=== PATIENT | male | born 1990 | race Caucasian/White ===

== ENCOUNTER 2016-11-28 15:37 | Emergency (ER) | payer BC, OTHER ==
[2016-11-28 15:46] VITALS: BP 140/93
--- NOTE | 2016-11-28 16:06 | EDM.PDOC ---
ED HPI LOWER BACK PAIN/INJURY - General Chief Complaint: Back Pain or Injury Stated Complaint: LOW BACK PAIN Time Seen by Provider: 11/28/16 15:45 Source of Information: Reports: Patient History Limitations: Reports: No limitations - History of Present Illness INITIAL COMMENTS - FREE TEXT/NARRATIVE: The patient presents with low back pain. He has a history of back injury and back problems. He had an MRI recently that showed a problem at L4 and L5. This weekend he was roller blading and he jumped on a rail and missed and landed on his back. He has no numbness or weakness. He has no bowel or bladder problems. Timing/Duration: Reports: Day(s): (3) Location: Reports: lower Quality: Reports: Sharp Severity: moderate Place of Occurrence: other (Trying to catch a rale) Improves with: Reports: None Worsens with: Reports: None Context: Reports: fall Associated Symptoms: Reports: Denies symptoms - Related Data Allergies/ADRs: Allergies Allergy/AdvReac Type Severity Reaction Status Date / Time No Known Allergies Allergy Verified 11/28/16 15:43 Home Meds: Home Meds Cyclobenzaprine [Flexeril] 10 mg PO TID PRN #20 tablet 11/28/16 [Rx] oxyCODONE HCl/Acetaminophen [Percocet 5-325 mg Tablet] 1 - 2 each PO Q6HR PRN # 20 tablet 11/28/16 [Rx] Past Medical History - Past Health History Medical/Surgical History: Denies Medical/Surgical History Social & Family History - Tobacco Use Smoking Status *Q: Current Every Day Smoker Years of Tobacco use: 5 Packs/Tins Daily: 0.3 - Recreational Drug Use Recreational Drug Use: No ED ROS GENERAL - Review of Systems Review Of Systems: See Below Constitutional: Reports: no symptoms HEENT: Reports: No symptoms Respiratory: Reports: No Symptoms Cardiovascular: Reports: No symptoms Endocrine: Reports: no symptoms GI/Abdominal: Reports: No symptoms : Reports: no symptoms Musculoskeletal: Reports: back pain (Low) Skin: Reports: no symptoms Neurological: Reports: No Symptoms ED EXAM,LOWER BACK PAIN/INJURY - Physical Exam Exam: See Below Exam Limited By: No limitations General Appearance: alert, no apparent distress Ears: normal external exam Nose: normal inspection Head: atraumatic, normocephalic Neck: normal inspection Respiratory/Chest: no respiratory distress, lungs clear, normal breath sounds Cardiovascular: regular rate, rhythm, no edema, no murmur GI/Abdominal: soft, non tender, no organomegaly Back Exam: vertebral tenderness (Moderate) Neurological: alert, no motor/sensory deficits, oriented x 3 Course - Vital Signs Last Recorded V/S: Last Vital Signs Temp 98.8 F 11/28/16 15:43 Pulse 70 11/28/16 15:43 Resp 15 11/28/16 15:43 BP 140/93 H 11/28/16 15:43 Pulse Ox 98 11/28/16 15:43 - Orders/Labs/Meds Orders: Active Orders 24 hr Category Date Time Status Lumbar Spine 2 or 3V [CR] Stat Exams 11/28/16 15:53 Taken - Re-Assessments/Exams Free Text/Narrative Re-Assessment/Exam: 11/28/16 16:16 His x-ray looks good. He asked me about some pain he has been having in the left lower chest. He has no shortness of breath with it. He has no fever, cough or congestion. I will get a prescription for flexeril and some percocet. Departure - Departure Time of Disposition: 16:30 Disposition: Home, Self-Care 01 Condition: good Clinical Impression: Pleurisy Fall Qualifiers: Encounter type: initial encounter Qualified Code(s): W19.XXXA - Unspecified fall, initial encounter Low back pain Qualifiers: Chronicity: acute Back pain laterality: bilateral Sciatica presence: without sciatica Qualified Code(s): M54.5 - Low back pain Prescriptions: oxyCODONE HCl/Acetaminophen [Percocet 5-325 mg Tablet] 1 - 2 each PO Q6HR PRN # 20 tablet PRN Reason: Pain Cyclobenzaprine [Flexeril] 10 mg PO TID PRN #20 tablet PRN Reason: Pain Referrals: Jose Manuel Pimentel PA-C [Physician Recruiting Consultant] - 1 Week Forms: ED Department Discharge Additional Instructions: Take your medication as prescribed. Ice your back for 15 minutes every other hour while awake for 2 days. Please return if you are worse such as increased pain, numbness, weakness, bowel or bladder problems. - My Orders Last 24 Hours: My Active Orders 11/28/16 15:53 Lumbar Spine 2 or 3V [CR] Stat - Assessment/Plan Last 24 Hours: My Active Orders 11/28/16 15:53 Lumbar Spine 2 or 3V [CR] Stat
--- NOTE | 2016-11-29 08:17 | CR ---
Lumbar spine: AP, lateral and cone-down lateral views centered to the lumbosacral junction were obtained. Comparison: Previous lumbar spine exam of 05/24/16 and MRI lumbar spine study of 05/29/16. Vertebral body heights and disc spaces are maintained. Pedicles as well as transverse and spinous processes are intact. No subluxation or fracture is seen. Impression: 1. Unremarkable lumbar spine study. No change is seen from previous exam. Diagnostic code #1
== END 2016-11-28 16:55 | disposition home or self-care (01) ==
LOC: JD.ED 15:37
DX: M54.5 Low back pain (principal); R09.1 Pleurisy; W19.XXXA Unspecified fall, initial encounter; Y93.51 Activity, roller skating (inline) and skateboarding; F17.210 Nicotine dependence, cigarettes, uncomplicated
CPT/HCPCS: 72100; 72100-26; 99283

== ENCOUNTER 2017-01-09 18:22 | Emergency (ER) | payer SELFPAY ==
[2017-01-09 18:37] VITALS: BP 117/76
[2017-01-09] MEDS ORDERED: Ketorolac 60 MG/2 ML SDV IM ONE (19:09)
--- NOTE | 2017-01-09 19:22 | EDM.PDOC ---
ED HPI GENERAL MEDICAL PROBLEM - General Chief Complaint: Back Pain or Injury Stated Complaint: BACK PAIN Time Seen by Provider: 01/09/17 19:02 Source of Information: Reports: Patient History Limitations: Reports: No Limitations - History of Present Illness INITIAL COMMENTS - FREE TEXT/NARRATIVE: Patient is a 26-year-old male presents ED complaining of lower back pain. Patient states yesterday he was lifting a heavy fryer fall of oil to dump. He did this 3 times and on the third time experienced increasing pain to his lower back. States the pain is constant with waxing with waning in intensity with movement. He did feel a small pop to his low back when this occurred. He's had intermittent tingling to his low back. Pain is worsen with movement and ambulation. He had similar episode approximately 4 months ago that is relieved with anti-inflammatories, steroids, and pain medications. He has no prior surgical history her low back. Denies any incontinence to urine or stool, numbness or tingling, saddle anesthesia, increased troponin, or any additional complaints. Patient has no previous past medical history and is currently taking no medications. Onset Date: 01/08/17 Duration: Constant, Waxing/Waning Location: Reports: Back Quality: Reports: Ache, Sharp, Throbbing Severity: Moderate Improves with: Reports: Rest Worsens with: Reports: Movement Context: Reports: Other Associated Symptoms: Reports: No Other Symptoms Treatments CARD GRADER: Reports: Other (see below) (None stated) Lower Back Pain Score (Numeric/FACES): 6 - Related Data Allergies Allergy/AdvReac Type Severity Reaction Status Date / Time No Known Allergies Allergy Verified 01/09/17 18:30 Home Meds: Home Meds Cyclobenzaprine [Flexeril] 10 mg PO TID #15 tablet 01/09/17 [Rx] Past Medical History - Past Health History Medical/Surgical History: Denies Medical/Surgical History HEENT History: Reports: Impaired Vision Musculoskeletal History: Reports: Back Pain, Chronic Social & Family History - Family History Cardiac: Reports: CAD GI: Reports: Cholelithiasis, Pancreatitis Musculoskeletal: Reports: Arthritis, Back pain, Chronic, Fibromyalgia - Tobacco Use Smoking Status *Q: Current Every Day Smoker Years of Tobacco use: 8 Packs/Tins Daily: 0.5 - Caffeine Use Caffeine Use: Reports: Coffee, Energy Drinks - Recreational Drug Use Recreational Drug Use: No ED ROS GENERAL - Review of Systems Review Of Systems: ROS reveals no pertinent complaints other than HPI. ED EXAM,LOWER BACK PAIN/INJURY - Physical Exam Exam: See Below Exam Limited By: No Limitations General Appearance: Alert, WD/WN, No Apparent Distress Ears: Hearing Grossly Normal Nose: Normal Inspection Throat/Mouth: Normal Voice, No Airway Compromise Neck: Normal Inspection, Supple Respiratory/Chest: No Respiratory Distress, No Accessory Muscle Use Cardiovascular: Normal Peripheral Pulses, Regular Rate, Rhythm Back Exam: Normal Inspection, Decreased Range of Motion, Paraspinal Tenderness, Vertebral Tenderness, Other (No bony abnormality is noted. Increased pain with palpation to the L4-L5 region and along the left lower and right lower back. No bruising or swelling noted. Low back muscles are tense.) Extremities: Normal Inspection, Non-Tender, No Pedal Edema, Normal Capillary Refill Neurological: Alert, Normal Mood/Affect, Normal Dorsiflexion, Normal Plantar Flexion, No Motor/Sensory Deficits, Oriented x 3, Difficulty Walking (Secondary to pain to lower back.). No: Normal Gait, Straight Leg Raise (L), Straight Leg Raise (R), Saddle Anesthesia Course - Vital Signs Last Recorded V/S: Last Vital Signs Temp 97.8 F 01/09/17 18:32 Pulse 70 01/09/17 18:32 Resp 18 01/09/17 18:32 BP 117/76 01/09/17 18:32 Pulse Ox 99 01/09/17 18:32 - Orders/Labs/Meds Meds: Medications Discontinued Medications Generic Name Dose Route Start Last Admin Trade Name [place] PRN Reason Stop Dose Admin Ketorolac Tromethamine 60 mg 01/09/17 19:09 01/09/17 19:23 Toradol IM 01/09/17 19:10 60 mg ONETIME ONE Administration - Re-Assessments/Exams Free Text/Narrative Re-Assessment/Exam: Ordered Toradol IM. Patient drove himself to the ED thus no sedative medications will be given. Will discharge patient home with prescription for Flexeril and detailed discharge instructions. Departure - Departure Time of Disposition: 19:10 Disposition: Home, Self-Care 01 Condition: Good Clinical Impression: Low back pain - Discharge Information Prescriptions: Cyclobenzaprine [Flexeril] 10 mg PO TID #15 tablet Instructions: Muscle Strain, [id number], Back Injury Prevention, [id number] , Back Pain, Adult, [id number], Pain Medicine Instructions, [id number] Referrals: PCP,None [Primary Care Provider] - Forms: ED Department Discharge, Return to Work/School Form Additional Instructions: Take the Flexeril as prescribed. In addition take Tylenol and ibuprofen in alternating fashion for pain. Utilize warm compresses and ice in alternating fashion as frequently as needed for discomfort. Refrain from any activities that cause worsening pain. Follow-up with your primary care provider as needed for reevaluation in the next week. Return back to the ED for any new or worsening symptoms. No driving while taking the Flexeril.
== END 2017-01-09 19:48 | disposition home or self-care (01) ==
LOC: JD.ED 18:22
DX: M54.5 Low back pain (principal); F17.210 Nicotine dependence, cigarettes, uncomplicated
CPT/HCPCS: 96372; 99283; J1885

== ENCOUNTER 2017-01-23 10:11 | Emergency (ER) | payer SELFPAY ==
[2017-01-23 10:21] VITALS: BP 124/77
[2017-01-23] MEDS ORDERED: Ibuprofen 600 MG Tab PO ONE (10:47)
[2017-01-23] MEDS ORDERED: Acetaminophen/oxyCODONE 325-5 MG Tab PO ONE (10:47)
--- NOTE | 2017-01-23 10:55 | EDM.PDOC ---
ED HPI GENERAL MEDICAL PROBLEM - General Chief Complaint: ENT Problem Stated Complaint: TOOTH PAIN Time Seen by Provider: 01/23/17 10:24 Source of Information: Reports: Patient History Limitations: Reports: No Limitations - History of Present Illness INITIAL COMMENTS - FREE TEXT/NARRATIVE: The patient is a 26-year-old male with a chief complaint of dental pain. He states that he has multiple cavities and cracked teeth that he knows about. The tooth on the right bottom area all the way to the back started giving him trouble about 4 days ago. He's had some swelling around the tooth. States that he has severe pain is preventing sleep. He does have an a dentist appointment but it won't be for another 2 weeks. He says he can't wait that long. No fever. No facial swelling. No neck pain. No additional complaint. Taking ibuprofen for pain with no relief. Right Tooth/Teeth Pain Score (Numeric/FACES): 9 - Related Data Allergies Allergy/AdvReac Type Severity Reaction Status Date / Time No Known Allergies Allergy Verified 01/23/17 10:21 Home Meds: Home Meds Amoxicillin 500 mg PO TID #21 capsule 01/23/17 [Rx] Hydrocodone/Acetaminophen [Hydrocodon-Acetaminophen 5-325] 1 each PO BID PRN #8 tablet 01/23/17 [Rx] Ibuprofen 600 mg PO QID PRN #40 tablet 01/23/17 [Rx] Past Medical History - Past Health History Medical/Surgical History: Denies Medical/Surgical History HEENT History: Reports: Impaired Vision Musculoskeletal History: Reports: Back Pain, Chronic - Past Surgical History HEENT Surgical History: Reports: Other (See Below) Other HEENT Surgeries/Procedures: [place] teeth removal in 2010 Social & Family History - Family History Family Medical History: Noncontributory Cardiac: Reports: CAD GI: Reports: Cholelithiasis, Pancreatitis Musculoskeletal: Reports: Arthritis, Back pain, Chronic, Fibromyalgia - Tobacco Use Smoking Status *Q: Current Every Day Smoker Years of Tobacco use: 9 Packs/Tins Daily: 0.5 - Caffeine Use Caffeine Use: Reports: Coffee, Energy Drinks Other Caffeine Use: daily - Recreational Drug Use Recreational Drug Use: No ED ROS ENT - Review of Systems Review Of Systems: See Below Constitutional: Denies: Fever HEENT: Reports: Dental Pain Respiratory: Denies: Shortness of Breath Cardiovascular: Reports: No Symptoms Musculoskeletal: Denies: Neck Pain ED EXAM, ENT - Physical Exam Exam: See Below Exam Limited By: No Limitations General Appearance: Alert, WD/WN, No Apparent Distress Eye Exam: Bilateral Eye: Normal Inspection Ears: Normal External Exam Nose: Normal Inspection, Normal Mucousa, No Blood, Other (Very poor dentition. Multiple dental caries and broken teeth. Bottom right molar with crack and gingival inflammation without definite abscess. Normal oropharynx) Head: Atraumatic, Normocephalic Neck: Normal Inspection, Supple, Non-Tender, Full Range of Motion Respiratory/Chest: No Respiratory Distress Psychiatric: Normal Affect, Normal Mood Skin: Warm, Dry, Intact, Normal Color, No Rash Course - Vital Signs Last Recorded V/S: Last Vital Signs Temp 36.8 C 01/23/17 10:16 Pulse 83 01/23/17 10:16 Resp 16 01/23/17 10:16 BP 124/77 01/23/17 10:16 Pulse Ox 95 01/23/17 10:16 - Orders/Labs/Meds Meds: Medications Discontinued Medications Generic Name Dose Route Start Last Admin Trade Name Vitalyq PRN Reason Stop Dose Admin Ibuprofen 600 mg 01/23/17 10:47 01/23/17 11:21 Motrin PO 01/23/17 10:48 600 mg ONETIME ONE Administration Oxycodone/Acetaminophen 1 tab 01/23/17 10:47 01/23/17 11:22 Percocet 325-5 Mg PO 01/23/17 10:48 1 tab ONETIME ONE Administration Departure - Departure Time of Disposition: 10:56 Disposition: Home, Self-Care 01 Condition: Good Clinical Impression: Dental caries extending into dentin, Dental abscess - Discharge Information Prescriptions: Amoxicillin 500 mg PO TID #21 capsule Hydrocodone/Acetaminophen [Hydrocodon-Acetaminophen 5-325] 1 each PO BID PRN #8 tablet PRN Reason: Pain Ibuprofen 600 mg PO QID PRN #40 tablet PRN Reason: Pain Instructions: Dental Abscess, [id number] Referrals: PCP,None [Primary Care Provider] - Forms: ED Department Discharge Additional Instructions: 1. Take ibuprofen as prescribed in pain. Take acetaminophen (Tylenol) as needed for pain. OK to take both meds - they work and are cleared by the body in different ways. 2. Take hydrocodone as needed for severe pain. 3. Follow up with a dentist as planned. 4. Take antibiotic as prescribed.
== END 2017-01-23 11:23 | disposition home or self-care (01) ==
LOC: JD.ED 10:11
DX: K04.7 Periapical abscess without sinus (principal); K02.9 Dental caries, unspecified; F17.210 Nicotine dependence, cigarettes, uncomplicated
CPT/HCPCS: 99283; A9270